=== PATIENT | female | born 1930 | race African-American/Black ===

== ENCOUNTER → 2016-11-15 | Outpatient (CLI) | payer MEDICARE, BC | END | disposition home or self-care (01) | LOC: PCVCCLINIC 15:22 | PROVIDERS: ATTEND Internal Medicine | DX: I50.9 Heart failure, unspecified (principal); I10 Essential (primary) hypertension; E78.5 Hyperlipidemia, unspecified; R42 Dizziness and giddiness | CPT/HCPCS: 80061; 93005; G0463 ==

== ENCOUNTER → 2017-02-21 | Outpatient (CLI) | payer MEDICARE, BC ==
--- NOTE | 2017-02-21 14:55 | PCVCIMAG ---
APPROVED REPORT Study performed: 02/21/2017 13:12:12 EXAM: Comprehensive 2D, Doppler, and color-flow Echocardiogram Patient Location: Echo lab Status: routine Other Information Study Quality: Good Indications Hypertension/HDD 2D Dimensions LVEF(%): 71.48 (>50%) IVSd: 14.31 (7-11mm)LVOT Diam: 21.61 (18-24mm) LVDd: 37.77 mm PWd: 12.69 (7-11mm)Ascending Ao: 29.10 (22-36mm) LVDs: 22.64 (25-40mm) Left Atrium: 34.18 (27-40mm) Aortic Root: 25.99 mm LV Single Plane 4CH: 70.75 % LV Single Plane 2CH: 45.86 %Sanchez's LVEF: 58.31 % Biplane EF: 58.4 % Volumes Left Atrial Volume (Systole) Single Plane 4CH: 80.03 mLSingle Plane 2CH: 57.85 mL Aortic Valve LVOT Max P.23 mmHg LVOT Max V: 1.03 m/s CARLEY Vmax: 3.10 cm2 Mitral Valve E/A Ratio: 0.7 MV Decel. Time: 137.35 ms MV E Max Uriel.: 0.98 m/s MV A Uriel.: 1.35 m/s IVRT: 44.98 ms Pulmonary Valve PV Peak Gr.: 2.79 mmHg Pulmonary Vein P Vein S: 0.78 m/sP Vein A: 0.34 m/s P Vein D: 0.42 m/sP Vein A Dur.: 86.5 msec P Vein S/D Ratio: 1.86 Tricuspid Valve TR Peak Uriel.: 3.39 m/s TR Peak Gr.: 46.09 mmHg Left Ventricle The left ventricle is normal size. There is normal LV segmental wall motion. Mild concentric left ventricular hypertrophy. Left ventricular systolic function is normal. LVEF is 55-60%. Grade I diastolic dysfunction Right Ventricle The right ventricle is normal size. The right ventricular systolic function is normal. Atria The left atrium size is normal. The right atrium size is normal. Aortic Valve The aortic valve is normal in structure. Trace to mild aortic regurgitation. There is no aortic valvular stenosis. Mitral Valve The mitral valve is normal in structure. Mild mitral regurgitation. No evidence of mitral valve stenosis. Tricuspid Valve The tricuspid valve is normal in structure. Mild tricuspid regurgitation. The RVSP is 50-55 mmHg. Pulmonic Valve The pulmonary valve is normal in structure. Trace pulmonic regurgitation. Great Vessels The aortic root is normal in size. IVC is normal in size and collapses with >50% inspiration Pericardium There is no pericardial effusion. <Conclusion> Left ventricular systolic function is normal. Mild concentric left ventricular hypertrophy. There is normal LV segmental wall motion. LVEF is 55-60%. Grade I diastolic dysfunction The aortic valve is normal in structure. Trace to mild aortic regurgitation. The mitral valve is normal in structure. Mild mitral regurgitation. Pulmonary artery pressure of 45mmHg There is no pericardial effusion.
== END | disposition home or self-care (01) ==
LOC: PCVCIMAG 13:09
PROVIDERS: ATTEND Internal Medicine
DX: I08.3 Combined rheumatic disorders of mitral, aortic and tricuspid valves (principal); I11.0 Hypertensive heart disease with heart failure; I50.32 Chronic diastolic (congestive) heart failure; I10 Essential (primary) hypertension; E78.5 Hyperlipidemia, unspecified; Z79.82 Long term (current) use of aspirin; Z79.899 Other long term (current) drug therapy
CPT/HCPCS: 93005; 93306; G0463

== ENCOUNTER → 2017-08-20 | Outpatient (CLI) | payer MEDICARE, BC | END | disposition home or self-care (01) | LOC: PCVCCLINIC 13:31 | PROVIDERS: ATTEND Internal Medicine | DX: I11.0 Hypertensive heart disease with heart failure (principal); I50.32 Chronic diastolic (congestive) heart failure; E78.5 Hyperlipidemia, unspecified; R00.1 Bradycardia, unspecified; R42 Dizziness and giddiness; Z79.899 Other long term (current) drug therapy | CPT/HCPCS: 80061; 93005; G0463 ==

== ENCOUNTER → 2018-02-18 | Outpatient (CLI) | payer MEDICARE, BC | END | disposition home or self-care (01) | LOC: PCVCCLINIC 14:41 | DX: I11.0 Hypertensive heart disease with heart failure (principal); I50.32 Chronic diastolic (congestive) heart failure; E78.5 Hyperlipidemia, unspecified; R42 Dizziness and giddiness; Z79.82 Long term (current) use of aspirin; Z79.899 Other long term (current) drug therapy | CPT/HCPCS: 93005; G0463 ==

== ENCOUNTER → 2018-08-20 | Outpatient (CLI) | payer MEDICARE, BC | END | disposition home or self-care (01) | LOC: PCVCCLINIC 13:41 | PROVIDERS: ATTEND Internal Medicine | DX: I11.0 Hypertensive heart disease with heart failure (principal); I50.32 Chronic diastolic (congestive) heart failure; E78.5 Hyperlipidemia, unspecified; R60.0 Localized edema; R42 Dizziness and giddiness; Z79.82 Long term (current) use of aspirin | CPT/HCPCS: 93005; G0463 ==

== ENCOUNTER → 2018-09-02 | Outpatient (CLI) | payer MEDICARE, BC | END | disposition home or self-care (01) | LOC: PCVCCLINIC 15:11 | PROVIDERS: ATTEND Internal Medicine | DX: I11.0 Hypertensive heart disease with heart failure (principal); I50.32 Chronic diastolic (congestive) heart failure; R60.1 Generalized edema; E78.00 Pure hypercholesterolemia, unspecified; Z79.82 Long term (current) use of aspirin; Z79.899 Other long term (current) drug therapy | CPT/HCPCS: 36415; 93005; G0463 ==

== ENCOUNTER → 2019-06-08 | Outpatient (CLI) | payer MEDICARE, BC | END | disposition home or self-care (01) | LOC: PCVCCLINIC 14:20 | PROVIDERS: ATTEND Internal Medicine | DX: E78.5 Hyperlipidemia, unspecified (principal); I11.0 Hypertensive heart disease with heart failure; I50.32 Chronic diastolic (congestive) heart failure | CPT/HCPCS: 36415 ==

== ENCOUNTER → 2019-07-15 | Outpatient (CLI) | payer MEDICARE, BC ==
--- NOTE | 2019-07-15 11:14 | PCVCIMAG ---
APPROVED REPORT Study performed: 07/15/2019 10:05:20 EXAM: Comprehensive 2D, Doppler, and color-flow Echocardiogram Patient Location: Echo lab Room #: [id number]: routine BSA: 1.70 HR: 47 bpmBP: 220/80 mmHg Rhythm: Bradycardia Other Information Study Quality: Adequate Risk Factors: Cardiac Risk Factors: HTN Indications LV Function:Diastolic Peripheral Edema Hypertension/HDD 2D Dimensions IVSd: 10.50 (7-11mm)LVOT Diam: 19.75 (18-24mm) LVDd: 44.64 mm PWd: 10.61 (7-11mm)Ascending Ao: 36.89 (22-36mm) LVDs: 26.03 (25-40mm) Left Atrium: 32.42 (27-40mm) Aortic Root: 27.49 mm LV Single Plane 4CH: 81.73 % LV Single Plane 2CH: 66.32 % Biplane EF: 77.0 % Volumes Left Atrial Volume (Systole) Single Plane 4CH: 86.71 mLSingle Plane 2CH: 61.02 mL Aortic Valve AoV Peak Uriel.: 1.38 m/s AO Peak Gr.: 7.60 mmHgLVOT Max P.56 mmHg LVOT Max V: 1.16 m/s CARLEY Vmax: 2.57 cm2 AI Vmax: 4.70 m/s AI [place]: 1.50 m/s2 AI PHT: 906.57 ms Mitral Valve E/A Ratio: 0.76 MV Decel. Time: 183.27 ms MV E Max Uriel.: 0.88 m/s MV A Uriel.: 1.17 m/s IVRT: 117.65 ms Pulmonary Valve PV Peak Uriel.: 0.97 m/sPV Peak Gr.: 3.77 mmHg Pulmonary Vein P Vein S: 0.90 m/sP Vein A: 0.28 m/s P Vein D: 0.50 m/sP Vein A Dur.: 141.9 msec Tricuspid Valve TR Peak Uriel.: 3.02 m/s TR Peak Gr.: 36.49 mmHg TV Vmax: 0.76 m/s Left Ventricle The left ventricle is normal size. There is normal LV segmental wall motion. There is normal left ventricular wall thickness. Left ventricular systolic function is normal. The left ventricular ejection fraction is within the normal range. LVEF is 65-70%. Mild diastolic dysfunction is present (impaired relaxation pattern). Right Ventricle The right ventricle is normal size. The right ventricular systolic function is normal. Atria Left atrium is moderately dilated. The right atrium size is normal. Aortic Valve The aortic valve is mildly sclerotic Mild aortic regurgitation. There is no aortic valvular stenosis. Mitral Valve The mitral valve is normal in structure. Mild mitral annular calcification No evidence of mitral valve stenosis. Tricuspid Valve The tricuspid valve is normal in structure. Mild to moderate tricuspid regurgitation with a PA pressure of 40 mmHg. Moderate pulmonary hypertension. Pulmonic Valve The pulmonary valve is normal in structure. There is no pulmonic valvular regurgitation. Great Vessels The aortic root is normal in size. The ascending aorta is upper normal in size. Aortic arch is normal in caliber. IVC is normal in size and collapses >50% with inspiration. Pericardium There is no pericardial effusion. There is no pleural effusion. <Conclusion> Left ventricular systolic function is normal. There is normal LV segmental wall motion. LVEF is 65-70%. Mild diastolic dysfunction Left atrium is moderately dilated. The aortic valve is mildly sclerotic. Mild aortic regurgitation, no stenosis. The mitral valve is normal in structure. Mild mitral annular calcification Mild to moderate tricuspid regurgitation with a pulmonary artery pressure of 40 mmHg. There is no pericardial effusion.
== END | disposition home or self-care (01) ==
LOC: PCVCIMAG 10:15
PROVIDERS: ATTEND Internal Medicine
DX: I11.0 Hypertensive heart disease with heart failure (principal); I50.32 Chronic diastolic (congestive) heart failure; I08.3 Combined rheumatic disorders of mitral, aortic and tricuspid valves; E78.5 Hyperlipidemia, unspecified; Z79.82 Long term (current) use of aspirin; Z79.899 Other long term (current) drug therapy
CPT/HCPCS: 93306; G0463